=== PATIENT | male | born 1950 | race American Indian/Alaskan Native ===

== ENCOUNTER 2018-10-22 12:34 | Inpatient (IN) | payer MEDICARE, OTHER ==
[~2018-10-22] VITALS: Ht 177.8 cm; Wt 108.9 kg
--- OUTSIDE RECORDS SUMMARY | ~2018-10-22 | XMS | Clinical Summary ---
Demographics + + + | Address | [address] | | | [place] [address] | + + + | Home Phone | | + + + | Preferred Language | Unknown | + + + | Marital Status | | + + + | Hinduism Affiliation | NRP | + + + | Race | White | + + + | Ethnic Group | or | + + + Author + + + | Author | [facility] | + + + | Organization | [facility] | + + + | Address | Unknown | + + + | Phone | Unavailable | + + + Support + + +---------+ + | Name | Relationship | Address | Phone | + + +---------+ + | Laura Turner | ECON | Unknown | | + + +---------+ + Care Team Providers + +------+ + | Care Lead Pl Sql Developer Name | Role | Phone | + +------+ + | No Pcp Per Patient | PP | Unavailable | + +------+ + Source Comments GEE is fully live on both [facility] and [facility] Allergies No Known Allergies Current Medications + + + +---------+------+------+-------+ | Prescription | Sig. | Disp. | Refills | Star | End | Statu | | | | | | t | Date | s | | | | | | Date | | | + + + +---------+------+------+-------+ | sodium chloride | Use one or two (5 | 500 mL | 5 | 04/1 | | Activ | | 0.9 % inhalation | mL) ampule/day for | | | 3/20 | | e | | solution for | the application of | | | 18 | | | | nebulization | scleral lens(es). | | | | | | + + + +---------+------+------+-------+ | prednisoLONE | Instill 1 drop into | 5 mL | 3 | 04/1 | | Activ | | acetate 1 % | the right eye once | | | 01/17 | | e | | ophthalmic (eye) | daily. 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 | + + + Family History + + +------+ + | Medical History | Relation | Name | Comments | + + +------+ + | Non-contributory | | | | + + +------+ + + +------+--------+ + | Relation | Name | Status | Comments | + +------+--------+ + Social History + +-------+ +--------+------+ | Tobacco Use | Types | Packs/Day | Years | Date | | | | | Used | | + +-------+ +--------+------+ | Never Smoker | | | | | + +-------+ +--------+------+ + +---+---+---+ | Smokeless Tobacco: | | | | | Never Used | | | | + +---+---+---+ + + | Tobacco Cessation: Counseling Given: No | + + + + +---------+ + | Alcohol Use | Drinks/We | oz/Week | Comments | | | ek | | | + + +---------+ + | Yes | 0 | 0.0 | Occasional | | | Standard | | | | | drinks or | | | | | | | | | | equivalen | | | | | t | | | + + +---------+ + + + + | Sex Assigned at | Date Recorded | | | | + + + | Not on file | | + + + Last Filed Vital Signs + + + + | Vital Sign | Reading | Time Taken | + + + + | Blood Pressure | 129/86 | 12/30/2015 8:41 AM PDT | + + + + | Pulse | 65 | 12/30/2015 8:41 AM PDT | + + + + | Temperature | 36.5 C (97.7 F) | 12/30/2015 8:44 AM PDT | + + + + | Respiratory Rate | 16 | 12/30/2015 8:41 AM PDT | + + + + | Oxygen Saturation | 98% | 12/30/2015 8:41 AM PDT | + + + + | Inhaled Oxygen | - | - | | Concentration | | | + + + + | Weight | 103.4 kg (228 lb) | 12/30/2015 6:44 AM PDT | + + + + | Height | 177.8 cm (5' 10") | 12/30/2015 6:44 AM PDT | + + + + | Body Mass Index | 32.71 | 12/30/2015 6:44 AM PDT | + + + + Plan of Treatment +--------+---------+ + + + | Date | Type | Specialty | Care Team | Description | +--------+---------+ + + + | 12/04/ | Office | | Elsa Cleaning, | | | 2019 | Visit | | [address] | | | | | | [place] | | | | | | [place], [place] | | | | | | [address] | | | | | | [phone] | | | | | | | | +--------+---------+ + + + | 12/05/ | Office | | Casey Hernandez, OD | | | 2019 | Visit | | [address] | | | | | | [place], [place] | | | | | | [address] | | | | | | [phone] | | | | | | | | +--------+---------+ + + + + + + + + | Health Maintenance | Due Date | Last Done | Comments | + + + + + | Pneumococcal (Adult) | | | | | (1 of 2 - PCV13) | 4 | | | + + + + + | Influenza (Flu) | | | | | vaccination (#1) | 8 | | | + + + + + Implants + +------+--------+ +--------+--------+--------+ | Implanted | Type | Area | Manufacture | Device | Expira | Model | | | | | r | | tion | / | | | | | | Identi | Date | Serial | | | | | | fier | | / Lot | + +------+--------+ +--------+--------+--------+ | Implant Corneal Tissue - | | Right: | LIONS | | 09/20/ | CORNEA | | [id number]: | | Eye | VISIONGIFT | | 2012 | L | | Qty: 1 on 09/11/2012 by | | | | | | TISSUE | | Savana Fitzgerald MD | | | | | | | | | | | | | | /2012- | | | | | | | | [id number] | | | | | | | | NOD / | + +------+--------+ +--------+--------+--------+ | Implant Lens Posterior - | | Right: | NEO | | 02/27/ | [id number] | | [id number]: Qty: 1 | | Eye | SURGICAL | | 2012 | | | on 09/11/2012 by Amilcar, | | | | | | /[id number] | | Savana Vivar MD | | | | | | [id number] | | | | | | | | / | + +------+--------+ +--------+--------+--------+ | Lens Iol Acrysof Iq 13mm 6mm | | Left: | NEO | | 05/30/ | [id number] | | Posterior Foldable Acrylic - | | Eye | | | 2019 | | | [id number]: Qty: 1 | | | | | | /[id number] | | on 12/30/2015 by Porfirio, | | | | | | [id number] | | Armand Yang MD | | | | | | / | + +------+--------+ +--------+--------+--------+ Results Not on filefrom Last 3 Months Insurance + +--------+ +--------+ + + | Payer | Benefi | Subscriber | Type | Phone | Address | | | t Plan | ID | | | | | | / | | | | | | | Group | | | | | + +--------+ +--------+ + + | MEDICARE | MEDICA | xxxxxxxxxx | Medica | [phone] [address] | | | RE A & | | re | [phone] | [place] [address] | | | B | | | | | + +--------+ +--------+ + + + +--------+ +--------+ + + | Guarantor Name | Accoun | Relation to | Date | Phone | Billing Address | | | t Type | Patient | of | | | | | | | | | | + +--------+ +--------+ + + | JEFFERY TURNER | Person | Self [birth year] Home: | [address] | | [place] | al/Fam | | 1951 | [phone] | [place] [address] | | | chris | | | [phone] | | + +--------+ +--------+ + +
[2018-11-05] MEDS ORDERED: ZESTRIL10 MG PO (08:44)
[2018-11-05] MEDS ORDERED: ASPIR-LOW81 MG PO (08:45)
[2018-11-05] MEDS ORDERED: CELEBREX200 MG PO (08:45)
[2018-11-05] MEDS ORDERED: LIPITOR10 MG PO (08:45)
--- NOTE | 2018-11-05 17:06 | OR ---
[facility] [address], [place] [address] Signed DATE OF OPERATION: 11/05/2018 SURGEON: Anne Dhaliwal MD PREOPERATIVE DIAGNOSIS: Degenerative joint disease, right hip. POSTOPERATIVE DIAGNOSIS: Degenerative joint disease, right hip. PROCEDURE PERFORMED: Right total hip arthroplasty. ANESTHESIA: Spinal with block. MOTOR VEHICLE DISPATCHER: Annamaria Alvarado PA-C. Annamaria was present and critical for all portions of the procedure. BLOOD LOSS: 225 mL. IMPLANTS: Miguel size five Acrylate II with a 54 cup and a -5 head. BRIEF HISTORY: Jeffery is a 68-year-old gentleman with severe pain in both hips and stiffness. He wishes to proceed with total hip arthroplasty. Risks, benefits, and alternatives were discussed with him and he elected to proceed. Once consent was obtained, he was taken to the operating room. After adequate anesthesia, he was placed in the supine position. The both legs were prepped and draped in a standard sterile fashion just past the iliac crest. The modified Steven Patiño approach was made through a 5 inch incision, carried through skin and subcutaneous tissue down to the fascia. The fascia was divided longitudinally and the split between the tensor fascia jessica and gluteus medius was evaluated and opened bluntly. Blunt dissection was taken down to the femoral neck and 2 retractors were placed inferior and superior to the femoral neck. Dissection was then taken up to the acetabular rim. The capsule was then opened and elevated anteriorly and posteriorly. Capsular release performed medially around to the level of the lesser trochanter. The femoral neck cut was then made under image intensifier guidance and a Electronically Signed By: ANNE DHALIWAL MD 11/05/18 1706 PATIENT NAME: JEFFERY TAMEZ OPERATIVE REPORT DATE OF : 46 REPORT #: [id number] PHYSICIAN: ANNE DHALIWAL MD PCP: CARLITOS CADENA REPORT IS CONFIDENTIAL AND NOT TO BE RELEASED WITHOUT AUTHORIZATION [facility] [address], [place] [address] Signed napkin ring was removed followed by the femoral head. The periacetabular soft tissue was removed and osteophytes were removed. The acetabulum was then reamed under image intensifier guidance up to a 54. It was well centered and 45 degrees of abduction and 15-20 degrees of anteversion. The cup was then impacted again under image intensifier guidance until it was well-seated in the acetabulum. The cup was quite stable and the liner was placed and impacted until it was well-seated. The leg was externally rotated, abducted, and the bed foot was dropped and attention was turned to the proximal femur, which was then opened using the cookie cutter followed by the awl and rongeurs to lateralize. Once we had accomplished this, the broaches were done starting with a zero and going up to a 5. The 5 was left in position and a -5 head was placed on it. This was then checked using image intensifier and adequate position was found to be true. The hip was then reduced. Leg lengths were found to be equal and range of motion was excellent. The flexion was 100 degrees, internal external rotation were 30 and 40 each. The hip was dislocated and trials were removed. The final stem was then impacted until it was well seated and a -5 ceramic head was then impacted and the hip was reduced again. Leg lengths were found to be equal. The wound was copiously irrigated with antibiotic solution and injected with 80 mL of ropivacaine and Toradol mixture. The fascia was then closed using #2 Stratafix, subcutaneous tissue with #0 Stratafix, and the skin with ayleen. Wound was dressed with a JOSE ALBERTO wound VAC dressing, and he was awakened and taken to the recovery room in satisfactory condition. All sponge, needle, and instrument counts were correct. He was stable throughout the case. Anne Dhaliwal MD BA/MODL /[id number] Copies: ~ Electronically Signed By: ANNE DHALIWAL MD 11/05/18 1706 PATIENT NAME: JEFFERY TAMEZ OPERATIVE REPORT DATE OF : 46 REPORT #: [id number] PHYSICIAN: ANNE DHALIWAL MD PCP: CARLITOS CADENA REPORT IS CONFIDENTIAL AND NOT TO BE RELEASED WITHOUT AUTHORIZATION
[2018-11-06] MEDS ORDERED: MULTI VITAMIN1 EACH PO (13:30)
[2018-11-06] MEDS ORDERED: VITAMIN C1000 MG PO (13:30)
[2018-11-07] MEDS ORDERED: OXYCODONE HCL5 MG PO (10:42)
[2018-11-07] MEDS ORDERED: GABAPENTIN600 MG PO (10:42)
[2018-11-07] MEDS ORDERED: TYLENOL EXTRA500 MG PO (10:42)
[2018-11-07] MEDS ORDERED: HEALTHYLAX17 GM PO (10:42)
[2018-11-07] MEDS ORDERED: CELEBREX200 MG PO (10:44)
[2018-11-07] MEDS ORDERED: ASPIRIN325 MG PO (10:44)
--- NOTE | 2018-11-08 12:11 | DS ---
[facility] [address] [place] [address] Signed ADMISSION DATE: 11/05/2018 DISCHARGE DATE: 11/07/2018 ADMISSION DIAGNOSIS: Degenerative joint disease, right hip. DISCHARGE DIAGNOSIS: Degenerative joint disease, right hip. PROCEDURE PERFORMED: Right total hip arthroplasty. BRIEF HISTORY: Jeffery is a 68-year-old gentleman with progressive worsening of osteoarthritis. He had undergone nonoperative treatment without success. Operative risks, benefits and alternatives were discussed at length. He understood and wished to proceed. Once consent was obtained, he was taken to the operating room, underwent the above-named procedure. He tolerated this well and was taken to the recovery room and subsequently to the orthopedic floor. He was initially placed on oxycodone, gabapentin, and Celebrex and has done well with his pain control. He will be discharged to home with the same medications. He was seen by Physical therapy, able to ambulate up and down the hallway, up and down stairs by the day of discharge. He will be seen in physical therapy on Monday. He will follow up with me on Monday for dressing change. He will notify me of any problems in the interim. Anne Dhaliwal MD BA/OBIE /[id number] Copies: Electronically Signed By: ANNE DHALIWAL MD 11/08/18 1211 PATIENT NAME: JEFFERY TAMEZ DISCHARGE SUMMARY DATE OF : 46 REPORT #: [id number] PHYSICIAN: NANE DHALIWAL MD PCP: CARLITOS CADENA REPORT IS CONFIDENTIAL AND NOT TO BE RELEASED WITHOUT AUTHORIZATION [address] [address] Signed ~ Electronically Signed By: ANNE DHALIWAL MD 11/08/18 1211 PATIENT NAME: JEFFERY TAMEZ DISCHARGE SUMMARY DATE OF : 46 REPORT #: [id number] PHYSICIAN: ANNE DHALIWAL MD PCP: CARLITOS CADENA REPORT IS CONFIDENTIAL AND NOT TO BE RELEASED WITHOUT AUTHORIZATION
== END 2018-11-07 12:07 | disposition home or self-care (01) | DRG 470 ==
LOC: MS 11-05 08:00 → DSVR 11-05 08:00 → MS 11-05 09:00
PROVIDERS: ADMIT Specialist
PROC: 3E0T3BZ Introduction of Anesthetic Agent into Peripheral Nerves and Plexi, Percutaneous Approach (ICD-10-PCS; 2018-11-05)
PROC: 0SR904Z Replacement of Right Hip Joint with Ceramic on Polyethylene Synthetic Substitute, Open Approach (ICD-10-PCS; principal; 2018-11-05 10:00)
DX: M16.11 Unilateral primary osteoarthritis, right hip (principal); I10 Essential (primary) hypertension; E78.5 Hyperlipidemia, unspecified; R34 Anuria and oliguria; Z79.1 Long term (current) use of non-steroidal anti-inflammatories (NSAID); Z79.82 Long term (current) use of aspirin; Z79.899 Other long term (current) drug therapy
CPT/HCPCS: 01402; 36415; 64447; 72170; 73501; 76942; 80048; 85025; 94762; 97110; 97116; 97161; 97165; 97535; C1776; J0131; J0690; J1885; J2250; J2274; J2405; J2704; J3010; J7030; J7120

== ENCOUNTER 2021-12-12 09:31 | Emergency (ER) | payer MEDICARE, OTHER ==
[~2021-12-12] VITALS: Ht 177.8 cm; Wt 108.9 kg
[~2021-12-12 09:31] MED LIST: ASPIR-LOW81 MG PO; ASPIRIN325 MG PO; CELEBREX200 MG PO; GABAPENTIN600 MG PO; HEALTHYLAX17 GM PO; LIPITOR10 MG PO; MULTI VITAMIN1 EACH PO; OXYCODONE HCL5 MG PO; TYLENOL EXTRA500 MG PO; VITAMIN C1000 MG PO; ZESTRIL10 MG PO
== END 2021-12-12 13:08 | disposition home or self-care (01) ==
LOC: ED 09:31
DX: U07.1 COVID-19 (principal); N19 Unspecified kidney failure; I10 Essential (primary) hypertension; Z79.899 Other long term (current) drug therapy
CPT/HCPCS: 36415; 80048; 99283

== ENCOUNTER 2025-06-23 06:37 | Day surgery (SDC) | payer MEDICARE, OTHER ==
[~2025-06-23] VITALS: Ht 177.8 cm; Wt 105.0 kg
[2025-06-23] VITALS (7 sets, daily range): BP systolic 97–141; BP diastolic 53–90
[~2025-06-23 06:37] MED LIST changes: +ALLOPURINOL200 MG PO; +COZAAR25 MG PO; +GLIPIZIDE5 MG PO; +LACTATED RINGER'S 1,000 ML IV SCH; +NORVASC10 MG PO
[2025-06-23] MEDS ORDERED: TRANEXAMIC ACID IN NACL,ISO-OS 1,000 MG/100 ML PIGGYBACK IV SCH ×2 (07:00→11:00)
[2025-06-23] MEDS ORDERED: VANCOMYCIN HCL 1,000 MG in DEXTROSE 5% 250 ML IV SCH (07:00)
[2025-06-23] MEDS ORDERED: LIDOCAINE HCL 1% 5 ML SDV INJ ONE (07:00)
[2025-06-23] MEDS ORDERED: INTRA-ARTICULAR ANALGESIC INJECTION XX SCH (07:00)
[2025-06-23] MEDS ORDERED: PANTOPRAZOLE SODIUM 40 MG TABEC PO SCH (07:00)
[2025-06-23] MEDS ORDERED: OXYCODONE HCL 5 MG TAB PO SCH (07:00)
[2025-06-23] MEDS ORDERED: IBLOOD GLUCOSE TEST STRIP 1 EA TEST VI PRN ×2 (07:00→08:00)
[2025-06-23] MEDS ORDERED: CEFAZOLIN SODIUM 2 GM in SODIUM CHLORIDE 0.9% 100 ML IV SCH ×2 (07:00→17:00)
[2025-06-23] MEDS ORDERED: DULOXETINE HCL 30 MG CAP PO SCH (07:00)
[2025-06-23] MEDS ORDERED: LIDOCAINE HCL 2% 5 ML SDV ONE (07:36)
[2025-06-23] MEDS ORDERED: BUPIVACAINE 0.75% IN DEXTROSE 2 ML AMP ONE (07:36)
[2025-06-23] MEDS ORDERED: DEXAMETHASONE SOD PHOS 4 MG/ML VIAL ONE (07:36)
[2025-06-23] MEDS ORDERED: NALOXONE HCL 0.4 MG SYR IV PRN (08:00)
[2025-06-23] MEDS ORDERED: HYDROmorphone HCL 1 MG/ML SYR IV PRN (08:00)
[2025-06-23] MEDS ORDERED: fentaNYL citrate 50 MCG/ML SDV IV PRN (08:00)
[2025-06-23] MEDS ORDERED: OXYCODONE HCL 5 MG TAB PO PRN (08:15)
[2025-06-23] MEDS ORDERED: KETOROLAC TROMETHAMINE 15 MG/ML VIAL IV PRN (08:15)
[2025-06-23] MEDS ORDERED: ACETAMINOPHEN 1,000 MG/100 ML VIAL ONE (09:00)
[2025-06-23] MEDS ORDERED: TRANEXAMIC ACID 1,000 MG/10 ML AMP ONE (09:15)
[2025-06-23] MEDS ORDERED: KETOROLAC TROMETHAMINE 30 MG/ML VIAL ONE (09:25)
[2025-06-23] MEDS ORDERED: DICLOFENAC SODI75 MG PO (10:10)
[2025-06-23] MEDS ORDERED: OXYCODONE HCL5 M1 PO (10:10)
[2025-06-23] MEDS ORDERED: DULOXETINE HCL30 MG PO (10:10)
[2025-06-23] MEDS ORDERED: ASPIRIN325 MG PO (10:10)
[2025-06-23] MEDS ORDERED: SENNA LAX8.6 MG PO (10:10)
[2025-06-23] MEDS ORDERED: ACETAMINOPHEN500 MG PO (10:10)
[2025-06-23] MEDS ORDERED: CEFUROXIME250 MG PO (10:10)
--- NOTE | 2025-06-23 10:27 | NUR ---
06/23/25 1027 Elly Warner 1015: PT ARRIVED TO PACU VIA STRETCHER. PT HAS TWO DRESSINGS IN PLACE TO LEFT HIP. DRESSING C/D/I. PT HAS NO COMPLAINTS OF PAIN OR NAUSEA AT THIS TIME. PT ON RA. 1027: X-RAY TECH IN ROOM AT THIS TIME.
--- NOTE | 2025-06-23 10:50 | NUR ---
PT ARRIVES TO FROM PACU VIA STRETCHER. PT IS A&O AND ON ROOM AIR W/O2 >90%. RESPIRATIONS ARE EVEN AND UNLABORED, NO SIGNS OF DISTRESS. REPORT RECEIVED FROM WINTER NEWBERRY, PT AT BEDSIDE. PT PROVIDED OPIOID PRESCRIPTION FOR DELIVERY TO [facility]. PT UNABLE TO MOVE BLE AT ALL. PT TOLERATING ORALS WITHOUT DIFFICULTY. CRACKERS, PUDDING, AND ICE WATER AT BEDSIDE. CALL LIGHT WITHIN REACH, PT AND PT STATE NO FURTHER NEEDS OR QUESTIONS AT THIS TIME.
--- NOTE | 2025-06-23 11:48 | OR ---
[facility] [address], [place] [address] Signed DATE OF OPERATION: 06/23/2025 SURGEON: Anne Dhaliwal MD PREOPERATIVE DIAGNOSIS: Severe hip degenerative joint disease, left. POSTOPERATIVE DIAGNOSIS: Severe hip degenerative joint disease, left. PROCEDURE PERFORMED: Left total hip arthroplasty. ROAD ROLLER ENGINEER: Annamaria Alvarado PA-C. Annamaria was present and critical for all portions of procedure. ANESTHESIA: Spinal. BLOOD LOSS: 200 mL. IMPLANTS: Miguel Insignia size 3 high offset with a 54 cup and a +2.5 head. BRIEF HISTORY: Jeffery is a 74-year-old gentleman with progressive worsening of hip arthritis. He had undergone right total hip with good results and wished to proceed with a left. Risks and benefits of operative treatment were discussed with him, he elected to proceed. DESCRIPTION OF PROCEDURE: Once consent was obtained, he was taken to the operating room. After adequate anesthesia, he was placed in the right lateral decubitus position. The left hip was prepped and draped in a standard sterile fashion. The Meliton computer array was then placed in the iliac crest three fingerbreadths posterior to the ASIS. It was done through two separate stab incisions. The hip was then approached through a standard anterior lateral approach, carried through skin and subcutaneous tissue. IT band was divided longitudinally. The vastus lateralis was then divided along the anterior margin of the femur from the tip of the trochanter distally. It was then elevated Electronically Signed By: ANNE DHALIWAL MD 06/23/25 1148 PATIENT NAME: JEFFERY TAMEZ OPERATIVE REPORT DATE OF : 46 REPORT #: [id number] PHYSICIAN: ANNE DHALIWAL MD PCP: CARLITOS CADENA PAC REPORT IS CONFIDENTIAL AND NOT TO BE RELEASED WITHOUT AUTHORIZATION [facility] [address], [place] [address] Signed subperiosteally. The gluteus minimus and capsule were then split from the anterior aspect of the greater trochanter to the acetabular rim. The capsule was then peeled off the anterior neck around to the level of the lesser trochanter. Partial posterior capsulectomy was performed. The leg was then registered with the computer. The hip was dislocated and the femoral neck cut was made 9 mm above the lesser trochanter. The head was then passed off the table. Periacetabular soft tissue was removed and acetabulum was registered with the computer. Good registration was obtained. We then brought in the reamer, however, the reamer would not register with the computer. Also, we elected to proceed with hand reaming. It was reamed in 19 degrees of anteversion and 40 degrees of abduction. The bone was in good condition and the cup was impacted at the same angle. The cup was quite tight. The acetabular liner was then impacted until it was well-seated. The attention was then turned to the proximal femur. This was opened using zahra cutter, followed by the Geraldine awl, lateralizing reamer was used to ream the greater trochanter. It was then sequentially broached from a 1 to a 3. The 3 was found to be quite well fitting, was left in position. A high offset femoral neck initially zero, then a +2.5 head were trialed, +2.5 head good tension. The leg lengths were good. The trials were taken out after dislocating the hip. The final stem was impacted to the same level as the broach. The final +2.5 head was impacted after cleaning the trunnion. Hip was reduced. Skin range of motion was good. Stability was good. We then copiously irrigated the wound with Surgiphor followed by normal saline. Periarticular soft tissues were injected with 80 mL of ropivacaine Toradol mixture. The capsule was then closed using #2 FiberWire. Vastus and IT band layers were closed independently using #2 Stratafix. Subcutaneous tissue with 0 Stratafix and the skin with 3-0 Stratafix. Wound was dressed with an Acticoat-7 dressing after sealing with LiquiBand. The patient was awakened, taken to the recovery room in satisfactory condition. All sponge, needle, and instrument counts were correct. Anne Dhaliwal MD BA/MODL /[id number] Electronically Signed By: ANNE DHALIWAL MD 06/23/25 1148 PATIENT NAME: JEFFERY TAMEZ OPERATIVE REPORT DATE OF : 46 REPORT #: [id number] PHYSICIAN: ANNE DHALIWAL MD PCP: CARLITOS CADENA PAC REPORT IS CONFIDENTIAL AND NOT TO BE RELEASED WITHOUT AUTHORIZATION [address] [address] Signed Copies: ~ Electronically Signed By: ANNE DHALIWAL MD 06/23/25 1148 PATIENT NAME: DASHAWNJEFFERYTODD WERNER OPERATIVE REPORT DATE OF : 46 REPORT #: [id number] PHYSICIAN: ANNE DHALIWAL MD PCP: CARLITOS CADENA PAC REPORT IS CONFIDENTIAL AND NOT TO BE RELEASED WITHOUT AUTHORIZATION
--- NOTE | 2025-06-23 12:25 | NUR ---
PER JULITO RN, PT HAS X1 EPISODE OF EMESIS. PER NAV FROM [facility] JENKINS FOR DROPERIDOL, GIVEN (SEE EMAR). PT STATES HE IS FEELING MUCH BETTER AFTER X1 EMESIS AND DOES NOT FEEL NAUSEATED ANYMORE. AT BEDSIDE. CALL LIGHT WITHIN REACH. PT STATES NO FURTHER NEEDS AT THIS TIME.
--- NOTE | 2025-06-23 12:56 | NUR ---
IN PT ROOM FOR VS AND ASSESSMENT. PT STATES HE IS STARTING TO GET SOME FEELING IN HIS LEGS AND CAN LIFT BLE OFF OF BED, UNABLE TO WIGGLE TOES AT THIS TIME. PT STATES HE IS STARTING TO GET DROWSY, EDUCATED ABOUT SIDE EFFECTS OF ANTI NAUSEA MED GIVEN. PT TOLERATED 80% OF LUNCH AND CONTINUES TO DRINK WATER. PT NOT AT BEDSIDE AT THIS TIME. NO ACUTE CHANGES TO SURGICAL DRESSING AT THIS TIME. CALL LIGHT WITHIN REACH. PT STATES NO FURTHER QUESTIONS OR NEEDS AT THIS TIME.
--- NOTE | 2025-06-23 13:55 | NUR ---
PT TO PHYSICAL THERAPY AT 1355. PT PHYSICAL THERAPY COMPLETE AT 1425. PER PHYSICAL THERAPIST, PT PASSED. PT UNABLE TO PEE.
--- NOTE | 2025-06-23 14:40 | NUR ---
D/T PT UNABLE TO URINE VOID, PT STATES HE DOES NOT FEEL URGE AT THIS TIME, BLADDER SCANNED FOR VOLUME OF 388 ML. PT ENCOURAGED TO CONSUME ORAL FLUIDS, PT STATES VERBAL UNDERSTANDING. CALL LIGHT WITHIN REACH, PT AT BEDSIDE. PT SAYS AT BASELINE HE USUALLY NEVER PEES DURING THE DAY AND IS PEEING ALL NIGHT.
[2025-06-23] MEDS ORDERED: ACETAMINOPHEN 500 MG TAB PO SCH (15:00)
--- NOTE | 2025-06-23 16:00 | NUR ---
ANSWERED PT CALL LIGHT, PT URINE VOID IN URINAL 200 ML CLEAR/YELLOW URINE. SANCHEZ FISCHER CALLED AND RECEIVED VO FOR PT DC. PT GETTING DRESSED W/ ASSISTANCE. CALL LIGHT WITHIN REACH.
--- NOTE | 2025-06-23 16:15 | NUR ---
IN PT ROOM FOR DC EDUCATION. PT AND PT STATE VERBAL UNDERSTANDING AND NO FURTHER QUESTIONS AT THIS TIME. CRYO CUFF MACHINE FILLED WITH ICE AND URINAL PROVIDED AT PT REQUEST. PT OFF OF UNIT VIA WC TO PASSENGER SIDE OF VEHICLE. ALL BELONGINGS IN PT POSSESSION AT THIS TIME. PT REPORTS NO FURTHER NEEDS.
[2025-06-23] MEDS ORDERED: SENNOSIDES 1 TAB PO SCH (21:00)
[2025-06-24] MEDS ORDERED: ASPIRIN 325 MG TAB PO SCH (08:00)
[2025-06-24] MEDS ORDERED: DICLOFENAC SOD 75 MG TABEC PO SCH (08:00)
[2025-06-24] MEDS ORDERED: DULOXETINE HCL 30 MG CAP PO SCH (09:00)
== END 2025-06-23 16:25 | disposition home or self-care (01) ==
LOC: DS 06:37
PROVIDERS: ATTEND Specialist
PROC: 0SRB0JZ Replacement of Left Hip Joint with Synthetic Substitute, Open Approach (ICD-10-PCS; principal; 2025-06-23 09:05)
DX: M16.12 Unilateral primary osteoarthritis, left hip (principal); E11.9 Type 2 diabetes mellitus without complications; E78.00 Pure hypercholesterolemia, unspecified; I10 Essential (primary) hypertension; Z79.84 Long term (current) use of oral hypoglycemic drugs; Z79.899 Other long term (current) drug therapy; Z88.8 Allergy status to other drugs, medicaments and biological substances
CPT/HCPCS: 0055T; 27130; 01214; 72170; 80053; 85025; 97161; 97530; A9270; C1713; C1776; J0131; J0688; J1100; J1790; J1885; J2003; J2704; J7121